=== PATIENT | female | born 1970 | race Caucasian/White ===

== ENCOUNTER 2019-05-13 06:38 | Day surgery (SDC) | payer MEDICARE ==
[~2019-05-13] VITALS: Ht 165.1 cm; Wt 72.6 kg
[~2019-05-13 06:38] MED LIST: ADDERALL10 MG PO; LEXAPRO10 MG PO; PROAIR HFA IN
[2019-05-13] MEDS ORDERED: EQL IBUPROFEN200 MG PO (07:00)
[2019-05-13 07:19] LABS: BARBITURATES NEGATIVE (NEGATIVE); COCAINE NEGATIVE (NEGATIVE); METHADONE NEGATIVE (NEGATIVE); OXCYCODONE NEGATIVE (NEGATIVE); TETRAHYDROCANNABIONOL POSITIVE (NEGATIVE); TRICYLIC ANTIDEPRESSANTS NEGATIVE (NEGATIVE)
[2019-05-13] MEDS ORDERED: PERCOCET 5/325M1 TAB PO (08:40)
[2019-05-13 09:06] VITALS: BP 159/90
== END 2019-05-13 09:49 | disposition home or self-care (01) ==
LOC: ORM 06:38
PROVIDERS: ATTEND Surgery
PROC: 0HBU0ZZ Excision of Left Breast, Open Approach (ICD-10-PCS; principal; 2019-05-13)
DX: C50.812 Malignant neoplasm of overlapping sites of left female breast (principal); F17.200 Nicotine dependence, unspecified, uncomplicated; Z17.0 Estrogen receptor positive status [ER+]; Z85.3 Personal history of malignant neoplasm of breast; Z90.13 Acquired absence of bilateral breasts and nipples; Z96.89 Presence of other specified functional implants

== ENCOUNTER 2019-06-06 14:44 | Emergency (ER) | payer MEDICARE ==
[~2019-06-06] VITALS: Ht 167.6 cm; Wt 66.0 kg
[~2019-06-06 14:44] MED LIST changes: +EQL IBUPROFEN200 MG PO; +PERCOCET 5/325M1 TAB PO
[2019-06-06] MEDS ORDERED: LORTAB 1010 MG PO (15:23)
[2019-06-06 15:35] VITALS: BP 139/95
== END 2019-06-06 15:35 | disposition home or self-care (01) ==
LOC: ED 14:44
DX: S90.31XA Contusion of right foot, initial encounter (principal); F17.210 Nicotine dependence, cigarettes, uncomplicated; W10.9XXA Fall (on) (from) unspecified stairs and steps, initial encounter; Y92.009 Unspecified place in unspecified non-institutional (private) residence as the place of occurrence of the external cause

== ENCOUNTER 2022-04-03 08:19 | Day surgery (SDC) | payer MEDICARE ==
[~2022-04-03] VITALS: Ht 167.6 cm; Wt 67.1 kg
[~2022-04-03 08:19] MED LIST changes: +ALL DAY ALLG10 MG PO; +CLONAZEPAM0.5 M1 PO; +FERRAPLUS 90 PO; +LORTAB 1010 MG PO; +METOPROL TAR25 MG PO; +MOTRIN800 MG PO; +MULTI VIT PO
[2022-04-03 11:34] VITALS: BP 153/91
== END 2022-04-03 11:49 | disposition home or self-care (01) ==
LOC: ENDO 08:19 → ORM 09:30 → ENDO 11:49
PROVIDERS: ATTEND Surgery
PROC: 0DJD8ZZ Inspection of Lower Intestinal Tract, Via Natural or Artificial Opening Endoscopic (ICD-10-PCS; principal; 2022-04-03)
DX: Z12.11 Encounter for screening for malignant neoplasm of colon (principal); K64.8 Other hemorrhoids; I10 Essential (primary) hypertension; F17.210 Nicotine dependence, cigarettes, uncomplicated; Z86.010 Personal history of colon polyps